=== PATIENT | female | born 1965 | race African-American/Black ===

== ENCOUNTER 2016-11-06 06:33 | Emergency (ER) | payer BC, OTHER ==
[~2016-11-06] VITALS: Ht 170.2 cm; Wt 77.0 kg
[~2016-11-06 06:33] MED LIST: ZOLOFT PO
[2016-11-06 06:36] VITALS: BP 134/83; PULSE 74; RESP 15; TEMP 97.8; O2SAT 98
[2016-11-06] MEDS ORDERED: KETOROLAC TROMETHAMINE 60 MG/2 ML (IM) VIAL IM ONE (07:15)
[2016-11-06] MEDS ORDERED: ORPHENADRINE INJ 60 MG/2 ML AMP IM ONE (07:15)
[2016-11-06] MEDS ORDERED: NAPR500T PO (07:16)
[2016-11-06] MEDS ORDERED: CYCL1TAB29 PO (07:16)
--- NOTE | 2016-11-06 07:16 | PD ---
HPI Chief Complaint: Back/ Neck Pain or Injury Time Seen by Provider: 07:08 Travel History International Travel<30 days: No Contact w/Intl Traveler<30days: No Traveled to known affect area: No History of Present Illness HPI 51-year-old female presents to the emergency Department with complaint of pain 2 weeks. The only thing she can think of is she lifted a heavy box and possibly strained her back. She has history of scoliosis. Has had history of back pain and injections to help with pain, but not like this. Denies fever, chills, nausea, vomiting, abdominal pain. Denies dysuria, urgency, frequency, hesitancy, hematuria. Denies encopresis, incontinence, saddle anesthesias. Denies paresthesias, loss of sensation, decreased range of motion, decreased strength to all extremities. Denies IV drug use. Denies cancer. Has tried taking ibuprofen and a muscle relaxer with no relief. Has used a heating pad with some relief. Pain is aggravated with palpation and movement. Denies allergies. Denies significant past medical history. Primary care provider is at [facility]. No other modifying factors or associated signs and symptoms. PFSH Past Medical History Asthma: Yes Cardiovascular Problems: No Cerebrovascular Accident: No Genitourinary: No Musculoskeletal: No Neurologic: Yes Reproductive: No Respiratory: Yes (ASTHMA) Migraines: Yes (WKLY. LATELY) Seizures: No Past Surgical History Hysterectomy: Yes Social History Tobacco Use: No Substance Use: No Allergies-Medications (Allergen,Severity, Reaction): Coded Allergies: No Known Allergies (Verified , 11/06/16) Reported Meds & Prescriptions Reported Meds & Active Scripts Active Flexeril (Cyclobenzaprine HCl) 10 Mg Tab 10 Mg PO TID PRN Naproxen 500 Mg Tab 500 Mg PO BID PRN 10 Days Reported [Zoloft] 100 Mg PO 2 TABS DAILY Review of Systems Except as stated in HPI: all other systems reviewed are Neg Physical Exam Narrative GENERAL: Well-nourished, well-developed female patient, in no acute distress; afebrile, nontoxic-appearing SKIN: Warm and dry. HEAD: Atraumatic. Normocephalic. EYES: Pupils equal and round. No scleral icterus. No injection or drainage. ENT: Mucosa pink and moist. Airway patent. NECK: Trachea midline. CARDIOVASCULAR: Regular rate and rhythm. No murmur appreciated. RESPIRATORY: No accessory muscle use. Breath sounds clear and equal bilaterally. No retractions or tachypnea. GASTROINTESTINAL: Abdomen soft, non-tender, nondistended. Positive bowel sounds. No hepato-splenomegaly, or palpable masses. No guarding. MUSCULOSKELETAL: Bilateral lower extremities supple and non-tense with 2+ pedal pulses and sensory intact; with full range of motion and 5/5 strength. DTRs 2+. Active dorsiflexion and extension of bilateral feet. Bilateral straight leg raise is negative for low back pain. Ambulatory with normal gait. Sitting up in bed at 90. No obvious deformities. No clubbing. No cyanosis. No edema. BACK: No CVA tenderness. No midline point tenderness on palpation of the lumbar spine. Midline point tenderness on palpation of the thoracic spine. No obvious deformities. NEUROLOGICAL: Awake and alert. Oriented 3. No obvious cranial nerve deficits. Motor grossly within normal limits. Normal speech. Moves all extremities. 5/5 strength to all extremities. Sensory intact. PSYCHIATRIC: Appropriate mood and affect; insight and judgment normal. Data Data Last Documented VS Vital Signs Date Time Temp Pulse Resp B/P Pulse Ox O2 Delivery O2 Flow Rate FiO2 11/06/16 06:36 97.8 74 15 134/83 98 Room Air Orders Spine, Thoracic-Ap/Lat/Sw(3vw) (11/06/16 07:07) Ketorolac Inj (Toradol Inj) (11/06/16 07:15) Orphenadrine Inj (Norflex Inj) (11/06/16 07:15) MDM Medical Decision Making Medical Screen Exam Complete: Yes Emergency Medical Condition: Yes Medical Record Reviewed: Yes Differential Diagnosis Acute exacerbation of chronic back pain, scoliosis, back strain Narrative Course 51-year-old female with history of scoliosis with thoracic back pain. Possible injury by lifting a heavy box. Pain is midline over the thoracic spine. Denies urinary symptoms. Toradol and Norflex ordered. Thoracic spine x-ray ordered. I offered to do a urinalysis to rule out UTI in the patient declined at this time stating that she doesn't think she has a urinary tract infection. 0749: Thoracic spine x-ray concludes scoliosis with curvature of the thoracic spine to the right by 22.4 and mild primary degenerative changes; no acute findings. Patient provided a copy of the x-ray report as per requested. Naproxen and Flexeril prescribed for home. Patient is medically cleared and stable for discharge. Discussed reasons to return to the emergency department. Instructed patient to follow up with primary care provider. Patient agrees with treatment plan. The patients vital signs are stable and the patient is stable for outpatient follow-up and treatment. Patient discharged home, stable and in no acute distress. Diagnosis Primary Impression: Thoracic back pain Qualified Code: M54.6 - Midline thoracic back pain, unspecified chronicity Additional Impression: Scoliosis Qualified Code: M41.9 - Scoliosis of thoracic spine, unspecified scoliosis type Referrals: Primary Care Physician Patient Instructions: Back Pain (ED), General Instructions, Thoracic Back Strain (ED) Departure Forms: Tests/Procedures, Work Release Enter return to work date: Nov 08, 2016 Additional Instructions: Tylenol or ibuprofen as directed and as needed for pain Flexeril as prescribed and as needed for muscle spasms Heating pad and/or ice to affected area to reduce pain Avoid aggravating activities; increase activity as tolerated Follow-up with primary care provider Return to emergency department immediately with worsening of symptoms Med/Other Pt SpecificInfo: Prescription(s) given Scripts Cyclobenzaprine (Flexeril)10 Mg Tab10 Mg PO TID PRN (MUSCLE SPASM) #30 TAB Ref 0 Prov:Giovanna Muller 11/06/16 Naproxen 500 Mg [id number] Mg PO BID PRN (PAIN SCALE 1 TO 10) 10 Days Ref 0 Prov:Giovanna Muller 11/06/16 Disposition: 01 DISCHARGE HOME Condition: Stable Giovanna Muller Nov 06, 2016 07:16
--- NOTE | 2016-11-06 07:45 | RADRPT ---
EXAM DATE/TIME: 11/06/2016 07:27 [facility] COMPARISON: No previous studies available for comparison. INDICATIONS : Upper back pain for the past two weeks. MEDICAL HISTORY : None. SURGICAL HISTORY : Cervical fusion. ENCOUNTER: Initial ACUITY: 2 weeks PAIN SCORE: 10/10 LOCATION: Bilateral upper back. FINDINGS: The bony structures are grossly intact. There is scoliosis with curvature of the mid thoracic spine t o the right by 22.4. No paraspinal soft tissue swelling is demonstrated. No spondylolisthesis is dem onstrated. There is some mild primary degenerative changes of the thoracic spine characteristic for p atient's age. There is evidence of prior surgery to the lower cervical spine. CONCLUSION: 1. Scoliosis with curvature of the thoracic spine to the right by 22.4. 2. Mild primary degenerative changes. Avni Rojas MD on November 06, 2016 at 7:41 Board Certified Radiologist. This report was verified electronically.
== END 2016-11-06 07:55 | disposition home or self-care (01) ==
LOC: NEPB 06:33
DX: M54.6 Pain in thoracic spine (principal); M41.9 Scoliosis, unspecified
CPT/HCPCS: 72072; 96372; 99283; J1885; J2360

== ENCOUNTER 2016-12-07 04:43 | Emergency (ER) | payer BC, OTHER ==
[~2016-12-07] VITALS: Ht 170.2 cm; Wt 78.4 kg
[~2016-12-07 04:43] MED LIST changes: +CYCL1TAB29 PO; +NAPR500T PO
[2016-12-07 04:45] VITALS: BP 147/83; PULSE 71; RESP 16; TEMP 97.4; O2SAT 99
[2016-12-07] MEDS ORDERED: DICL75TA PO (05:10)
[2016-12-07] MEDS ORDERED: ROBA500T PO (05:10)
[2016-12-07] MEDS ORDERED: ACETAMINOPHEN/HYDROcodone 325 MG/5 MG TAB PO ONE (05:15)
[2016-12-07] MEDS ORDERED: NAPROXEN 500 MG TAB PO ONE (05:15)
--- NOTE | 2016-12-07 05:15 | PD ---
HPI Chief Complaint: Pain: Acute or Chronic Time Seen by Provider: 05:11 Travel History International Travel<30 days: No Contact w/Intl Traveler<30days: No Traveled to known affect area: No History of Present Illness HPI 51-year-old black female presents to emergency Department with complaints of persistent lower back pain. The patient states that she was seen here in the emergency department approximately 1 month ago. She has a known history of scoliosis and chronic pain. She had been in pain management but has not followed up with them lately. She also has not seen her primary care doctor regarding her back pain. This initially had been exacerbated by a injury while lifting boxes at work approximately one month ago. She states the pain is localized to her lower thoracic upper lumbar region. Worse with bending and movement. Some relief with remaining still or lying down. She states the pain is sharp. Mild to moderate in intensity but can be severe at certain times. She denies any urinary symptoms. No dysuria, frequency or hematuria. No recent illness. PFSH Past Medical History Narrative Medical Asthma, migraines, chronic back pain with scoliosis Asthma: Yes Cardiovascular Problems: No Cerebrovascular Accident: No Genitourinary: No Musculoskeletal: No Neurologic: Yes Reproductive: No Respiratory: Yes (ASTHMA) Migraines: Yes (WKLY. LATELY) Seizures: No ?: Not Past Surgical History Narrative Surgical hYSTERECTOMY Hysterectomy: Yes Social History Alcohol Use: No Tobacco Use: No Substance Use: No Allergies-Medications (Allergen,Severity, Reaction): Coded Allergies: No Known Allergies (Verified , 12/07/16) Reported Meds & Prescriptions Reported Meds & Active Scripts Active Robaxin (Methocarbamol) 500 Mg Tab 500 Mg PO QID Diclofenac Sodium DR (Diclofenac Sodium) 75 Mg Tabdr 75 Mg PO BID Review of Systems Except as stated in HPI: all other systems reviewed are Neg Physical Exam Narrative GENERAL: Well-developed, well-nourished in no apparent distress. Nontoxic appearing. HEAD: Normocephalic, atraumatic. EYES: Pupils equal round and reactive. Extraocular motions intact. No scleral icterus. No injection or drainage. ENT: Nose clear. Throat without erythema, tonsillar hypertrophy or exudate. Uvula midline. Airway patent. NECK: Trachea midline. Supple, nontender, moves head freely. No central bony tenderness or spasm. CARDIOVASCULAR: Regular rate and rhythm without murmurs, gallops, or rubs. RESPIRATORY: Clear to auscultation. Breath sounds equal bilaterally. No wheezes , rales, or rhonchi. GASTROINTESTINAL: Abdomen soft, non-tender, nondistended. No hepato-splenomegaly , or palpable masses. No guarding. EXTREMITIES: No clubbing, cyanosis, or edema. No joint tenderness. BACK: Complains of lower thoracic upper lumbar discomfort without deformity. No gross spasm. No flank tenderness. Decreased forward flexion to 70. Able to heel and toe stand. No saddle anesthesia. Negative straight leg raise. NEUROLOGICAL: Awake, alert and oriented x 3 .Cranial nerves grossly intact. Motor and sensory grossly within normal limits. Normal speech. Data Data Last Documented VS Vital Signs Date Time Temp Pulse Resp B/P Pulse Ox O2 Delivery O2 Flow Rate FiO2 12/07/16 04:45 97.4 71 16 147/83 99 Room Air MDM Medical Decision Making Medical Screen Exam Complete: Yes Emergency Medical Condition: Yes Medical Record Reviewed: Yes Differential Diagnosis MDM: High Differential diagnoses: AAA,Fracture, sprain, strain, HNP, nerve or vascular injury, epidural abscess, pilonidal cyst, pyelonephritis, UTI, nephrolithiasis, ureterolithiasis Narrative Course I reviewed the patient's medical record from her last visit as well as her x- ray. Patient's given Naprosyn 500 and Lortab 5 mg by mouth. This is acute exacerbation of chronic back pain, scoliosis Diagnosis Primary Impression: Acute exacerbation of chronic low back pain Additional Impression: Scoliosis Qualified Code: M41.9 - Scoliosis, unspecified scoliosis type, unspecified spinal region Patient Instructions: Narcotic given in the ED, General Instructions Departure Forms: Tests/Procedures, Work Release Special Instructions: No work 3 days. Additional Instructions: Rest. Ice for the next 3 days followed by heat . Robaxin and Voltaren. Follow-up with a primary care doctor in one week. Follow-up with your pain management doctor in one week. Return to the ER for emergencies. Med/Other Pt SpecificInfo: Prescription(s) given Scripts Methocarbamol (Robaxin)500 Mg [id number] Mg PO QID #40 TAB Prov:Divya Washburn MD 12/07/[address] 75 Mg Tabdr75 Mg PO BID #30 TAB Prov:Divya Washburn MD 12/07/16 Disposition: 01 DISCHARGE HOME Condition: Stable Lopez Eid Dec 07, 2016 05:15
== END 2016-12-07 05:39 | disposition home or self-care (01) ==
LOC: NEPB 04:43
DX: M54.5 Low back pain (principal); G89.29 Other chronic pain; M41.9 Scoliosis, unspecified; J45.909 Unspecified asthma, uncomplicated
CPT/HCPCS: 99283